=== PATIENT | female | born 1995 | race African-American/Black ===

== ENCOUNTER 2017-03-07 13:52 | Emergency (ER) | payer MEDICAID ==
[~2017-03-07] VITALS: Ht 172.7 cm; Wt 67.1 kg
[~2017-03-07 13:52] MED LIST: BENTYL10 MG ORAL; NKM; ZANTAC150 MG ORAL; ZOFRAN ODT4 MG ORAL
[2017-03-07] MEDS ORDERED: IBUPROFEN600 MG ORAL (14:43)
[2017-03-07 15:03] VITALS: BP 116/68
[2017-03-07 15:05] VITALS: BP 116/68
--- NOTE | 2017-03-07 16:22 | Emergency Room Report ---
History of Present Illness General Chief Complaint: Pain Source: Patient (JESSICA URIBE) Present Illness HPI The patient is a 21-year-old female who denies any medical history presenting for bilateral knee pain. The patient states that the pain began one week prior and has been gradually increasing. It is now described as a 6/10 dull ache it is worse with movement such as climbing stairs. Pain does not radiate. The patient states that she has been hiking every day. She has not tried any medications. The patient denies any other symptoms including nausea, vomiting, fever, chills , cough, shortness of breath, calf pain, numbness or tingling (JESSICA URIBE) Allergies: Coded Allergies: No Known Allergies (Unverified , 10/12/16) Patient History Past Medical History: see triage record Pertinent Family History: none Last Menstrual Period: 02/02/17 Now: No Reviewed Nursing Documentation: PMH: Agreed, PSxH: Agreed (JESSICA URIBE) Nursing Documentation-PMH Past Medical History: No History, Except For (JESSICA URIBE) Review of Systems All Other Systems: negative except mentioned in HPI (JESSICA URIBE) Physical Exam Vital Signs Date Time Temp Pulse Resp B/P Pulse Ox O2 Delivery O2 Flow Rate FiO2 03/07/17 14:02 98.4 69 15 116/68 100 Room Air Sp02 EP Interpretation: reviewed, normal General Appearance: no apparent distress, alert, GCS 15, non-toxic Head: normocephalic, atraumatic Eyes: bilateral eye PERRL, bilateral eye normal inspection ENT: hearing grossly normal, normal pharynx, no angioedema, normal voice Musculoskeletal: normal inspection, back normal, normal range of motion, no calf tenderness, tender - anterior knees Neurologic: alert, oriented x3, responsive, motor strength/tone normal, sensory intact, speech normal Psychiatric: judgement/insight normal, memory normal, mood/affect normal, no suicidal/homicidal ideation Reflexes: 3+ bicep (R), 3+ bicep (L), 3+ tricep (R), 3+ tricep (L), 3+ knee (R) , 3+ knee (L) Skin: normal color, no rash, warm/dry, well hydrated Lymphatic: no adenopathy (JESSICA URIBE) Medical Decision Making PA Attestation Dr. West is my supervising physician. Patient management was discussed with my supervising physician (JESSICA URIBE) Diagnostic Impression: Primary Impression: Knee pain, bilateral Qualified Codes: M25.561 - Pain in right knee; M25.562 - Pain in left knee ER Course The patient is a 21-year-old female who denies any medical history presenting for bilateral knee pain Ddx considered include but not limited to sprain/strain, tendonitis, fracture, contusion PE: vitals WNL. NAD Bilat knees. No edema. No ecchymosis. Full AROM. There is tenderness to palpation over bilateral anterior knees. Normal gait This is most likely tendinitis due to hiking daily. The patient will rest and is given RICE instructions. Patient is given a prescription for Motrin and will followup with PMD. ER precautions are given (JESSICA URIBE) ER Course I evaluated this patient in the ED at [facility] with my advanced practice provider (Physician [employer]) colleague, who practices under my general supervision. My impressions concur with the advanced practice provider in regards to their obtained history of present illness, physical exam, general management, diagnosis, and disposition. In particular, I agree with PA-obtained interpretation of imaging, rhythm strip. For the evening and overnight shifts, we do not have the benefit of an in-house Radiologist to review xrays so our interpretation may be limited. Patients are to be discharged only with normal vital signs (or if we discussed a particular exception), a plan for follow-up care, and understand to return to the ED for worsening symptoms. Please see midlevel healthcare providers note for further details. (YVETTE WEST M.D.) Last Vital Signs Date Time Temp Pulse Resp B/P Pulse Ox O2 Delivery O2 Flow Rate FiO2 03/07/17 15:05 98.4 65 15 116/68 100 Room Air Status: improved (JESSICA URIBE P.A.) Disposition: HOME, SELF-CARE Condition: Improved Scripts Ibuprofen* (MOTRIN*) 600 Mg Tablet 600 MG ORAL Q8H Y for For Pain, #30 TAB 0 Refills Prov: JESSICA URIBE P.AJailene 03/07/17 Referrals: NON PHYSICIAN (PCP) Patient Instructions: Knee Pain Additional Instructions: I discussed my findings with the patient. All questions and concerns have been answered. Treatment and medication compliance have been addressed. I advised the patient that they need to follow up with PMD in 3-5 days. Return to ED if pain remains or worsens, numbness or tingling occurs, new rash is noticed, fever is noticed, or if needed for any reason. Patient verbalized understanding of discharge instructions. JESSICA URIBE Mar 07, 2017 16:22 YVETTE WEST M.D. Mar 09, 2017 20:55
== END 2017-03-07 15:05 | disposition home or self-care (01) ==
LOC: EMR 14:15
DX: M76.52 Patellar tendinitis, left knee (principal); M76.51 Patellar tendinitis, right knee
CPT/HCPCS: 99283

== ENCOUNTER 2018-08-30 15:29 | Emergency (ER) | payer MEDICAID ==
[~2018-08-30] VITALS: Ht 172.7 cm; Wt 70.3 kg
[~2018-08-30 15:29] MED LIST changes: +IBUPROFEN600 MG ORAL
[2018-08-30 16:15] VITALS: BP 105/66
[2018-08-30] MEDS ORDERED: Methocarbamol 500mg tab ORAL ONE (16:15)
[2018-08-30] MEDS ORDERED: Acetaminophen 500mg (ES) tab ORAL ONE (16:15)
--- NOTE | 2018-08-30 16:15 | Emergency Room Report ---
History of Present Illness General Chief Complaint: Lower Back Pain or Injury Source: Patient Present Illness HPI 22-year-old female patient presents ER complaining of low back pain for the past 2 days. 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 Denies vomiting ground, hitting her head, loss of consciousness. Reports history of similar symptoms in the past. Reports that the pain radiates up her spine and down her legs. Denies bowel or bladder incontinence. Reports took [place] yesterday for pain. Reports taking anything for pain today. Reports able to ambulate. Denies fever, chest pain, shortness of breath, dysuria, hematuria, abdominal pain. Denies , reports taking control medication. Allergies: Coded Allergies: No Known Allergies (Unverified , 10/12/16) Patient History Past Medical History: see triage record Last Menstrual Period: 08/23/18 Now: No Reviewed Nursing Documentation: PMH: Agreed; PSxH: Agreed Nursing Documentation-PMH Past Medical History: No Stated History Review of Systems All Other Systems: negative except mentioned in HPI Physical Exam Vital Signs Date Time Temp Pulse Resp B/P (MAP) Pulse Ox O2 Delivery O2 Flow Rate FiO2 08/30/18 15:43 99.7 74 20 105/66 97 Room Air 99.7 Sp02 EP Interpretation: reviewed, normal General Appearance: well appearing, no apparent distress, alert, GCS 15, non- toxic Head: normocephalic, atraumatic Eyes: bilateral eye normal inspection, bilateral eye PERRL ENT: hearing grossly normal, normal pharynx, no angioedema, normal voice, uvula midline, moist mucus membranes Neck: full range of motion Respiratory: lungs clear, normal breath sounds, no rhonchi, no respiratory distress, no accessory muscle use, no wheezing, speaking full sentences Cardiovascular #1: regular rate, rhythm, no edema Gastrointestinal: non tender, soft, no mass, non-distended, no guarding, no rebound Musculoskeletal: back normal, digits/nails normal, gait/station normal, normal range of motion Neurologic: alert, oriented x3, responsive, motor strength/tone normal, sensory intact, cerebellar normal, normal gait, speech normal, other - SLR positive Psychiatric: mood/affect normal Skin: no rash Medical Decision Making PA Attestation Dr. Tenorio is my supervising Physician whom patient management has been discussed with. Diagnostic Impression: Primary Impression: Lumbosacral strain ER Course Pt. presents to the ED c/o low back pain. Ddx considered but are not limited to fracture, sprain, strain, contusion, dislocation. No erythema, no warmth to touch, no fever, nontoxic appearing, low suspicion for septic joint. Vital signs: are WNL, pt. is afebrile Ordered X-ray and pain medication. ER COURSE Provided with pain medication. patient signed waver stating that she is not okay to have lumbar spine x-ray taken without urine . An X-ray of the lumbar spine shows no acute disease per the preliminary reading. likely lumbosacral strain causing pain symptoms. follow-up with primary care provider. Patient instructed on RICE method: rest, ice, compression, elevation. Patient instructed on rest, ice and heat. Contact information for orthopedic urgent care provided, follow-up with urgent care if unable to followup with primary care provider and get referral to waste/materials exchange specialist. Followup with primary care provider. Discuss referral to ortho/pain management/ PT as needed. Discuss further imaging with MRI/CT as needed. DISCHARGE: -Rx provided for Tylenol for pain symptoms. -Rx provided for Methocarbamol. SE drowsiness, do not drink, drive, or operate heavy machinery while using. -Rx provided for lidocaine patches At this time pt. is stable for d/c to home. Patient is resting comfortably, in no acute distress, nontoxic appearing, talking without difficulty. Will provide printed patient care instructions, and any necessary prescriptions. Patient instructed to follow with primary care provider in 3 - 5 days and to request further follow-up as needed. Care plan and follow up instructions have been discussed with the patient prior to discharge. Take medications as directed. Patient questions asked and answered. Patient reports understanding and agreement to treatment plan. ER precautions given, patient instructed to return to ER immediately for any new or worsening of symptoms. - Please note that this Emergency Department Report was dictated using Fonmatchdish technician technology software, occasionally this can lead to erroneous entry secondary to interpretation by the dictation equipment. Other X-Ray Diagnostic Results Other X-Ray Diagnostic Results : X-Ray ordered: lumbar spine # of Views/Limited Vs Complete: 3 View Indication: Pain EP Interpretation: Yes PA Xray: Interpretation reviewed, by supervising MD, and agrees with findings. Interpretation: no dislocation, no soft tissue swelling, no fractures Impression: No acute disease ZAKIYA Guido Text Nii Gonzalez PA-C Last Vital Signs Date Time Temp Pulse Resp B/P (MAP) Pulse Ox O2 Delivery O2 Flow Rate FiO2 08/30/18 15:43 99.7 74 20 105/66 97 Room Air 99.7 Disposition: HOME, SELF-CARE Condition: Stable Scripts Acetaminophen* (TYLENOL EXTRA STRENGTH*) 500 Mg Tablet 500 MG ORAL Q8H PRN for Prn Headache/Temp > 101, #30 TAB 0 Refills Prov: Rey Gonzalez 08/30/18 Methocarbamol* (ROBAXIN*) 500 Mg Tablet 500 MG PO TID, #21 TAB 0 Refills Prov: Rey Gonzalez 08/30/18 Lidocaine (Lidocaine) 1 Each Adh..patch 5 % TP DAILY for 7 Days, #7 PATCH Prov: Rey Gonzalez 08/30/18 Patient Instructions: Lumbosacral Strain, Muscle Cramps and Spasms, Easy-to- Read, Sciatica With Rehab-SportsMed Additional Instructions: Patient instructed to follow up with primary care provider 3-5 and discuss further referral and imaging at that time. Patient instructed on rest, ice and heat. Do not take muscle relaxant prior to drinking, driving, or operating heavy machinery. Take medications as directed. Patient questions asked and answered. ER precautions given, patient instructed to return to ER immediately for any new or worsening of symptoms. [facility] [address] [facility], [address] [email or web address] Rey Gonzalez Aug 30, 2018 16:15
[2018-08-30] MEDS ORDERED: LIDOCAINE700 M1 TP (16:46)
[2018-08-30] MEDS ORDERED: TYLENOL EXTRA500 MG ORAL (16:46)
[2018-08-30] MEDS ORDERED: ROBAXIN500 MG PO (16:46)
[2018-08-30 17:30] VITALS: BP 112/77
--- NOTE | 2018-08-30 17:39 | Diagnostic Imaging Report ---
Indication: Back pain, status post trauma Technique: 3 views of the lumbar spine Comparison: None Findings: Bony alignment is normal. Vertebral body heights are preserved. There is equivocal mild narrowing of the L2-3 disc, with small anterior osteophytes. The remaining disc spaces are preserved. The pedicles are intact. Sacral arches and sacroiliac joint spaces are preserved. Impression: No acute bony trauma Questionable mild degenerative changes at L2-3
== END 2018-08-30 17:45 | disposition home or self-care (01) ==
LOC: EMR 16:45
DX: S39.012A Strain of muscle, fascia and tendon of lower back, initial encounter (principal); W18.39XA Other fall on same level, initial encounter; Y93.F9 Activity, other caregiving; Y92.9 Unspecified place or not applicable; Y99.9 Unspecified external cause status
CPT/HCPCS: 72020; 99283